=== PATIENT | female | born 1985 | race American Indian/Alaskan Native ===

== ENCOUNTER 2021-08-07 12:00 | Emergency (ER) | payer SELFPAY ==
[2021-08-07 12:08] VITALS: BP 133/75
--- NOTE | 2021-08-07 12:15 | Emergency Department Report ---
Abscess Boil HPI - HPI Chief Complaint: Extremity Injury, Lower Stated Complaint: LEFT BIG TOE Time Seen by Provider: 08/07/21 12:08 Duration: 2 Days Location: Lower Extremity Severity: Mild History: Yes Pain, No Fever, No Purulent Drainage, No Numbness, No Foreign Body, No Previous History, No Insect Bite HPI: 36 yo comes to ER p having her great toe ran over by a wheelchair while at work several days ago. She reporsts swelling and pain. no other injury. last tdap when she finished high school. Ambulatory to ER Allergies/Adverse Reactions: Allergies Allergy/AdvReac Type Severity Reaction Status Date / Time sulfamethoxazole AdvReac Hives Verified 08/07/21 12:09 [From Bactrim] trimethoprim [From Bactrim] AdvReac Hives Verified 08/07/21 12:09 ED Review of Systems ROS: Stated complaint: LEFT BIG TOE Other details as noted in HPI Comment: All other systems reviewed and negative ED Past Medical Hx - Past Medical History Previous Medical History?: No - Surgical History Past Surgical History?: No - Family History Family history: no significant - Social History Smoking Status: Never Smoker Substance Use Type: None ED Abscess Boil Physical Exam - Exam General: Vital signs noted. No distress. Alert and acting appropriately. Size: 2 cm Exam: Yes Tenderness, Yes Fluctuance, Yes Normal Neurologic Exam, Yes Normal Circulation, No Surrounding Cellulites/Erythema, No Lymphangitis, No Crepitation, No Heart Murmur Exam: l great toe with serous fluid filled blister. Full ROM. No nail bed involvement. Rapid cap refill. Foot and ankle WNL I & D Note - I & D Note I & D Note: blister opened with 18 g needle with immediate relief ofpain ED Course Vital Signs 08/07/21 12:05 Temperature 98.3 F Pulse Rate 84 Respiratory 16 Rate Blood Pressure 133/75 [Left] O2 Sat by Pulse 99 Oximetry Critical care attestation.: If time is entered above; I have spent that time in minutes in the direct care of this critically ill patient, excluding procedure time. ED Medical Decision Making - Medical Decision Making Vital Signs 08/07/21 08/07/21 12:05 12:31 Temperature 98.3 F Pulse Rate 84 Respiratory 16 18 Rate Blood Pressure 133/75 [Left] O2 Sat by Pulse 99 Oximetry tdap updated motrin for pain I/D completed wound care provided dressing applied ortho shoe for comfort Pt ambulatory on d/c exam. Pt dc home with dc plan of care including activity, wound care and follow up. She verbalizes understanding. - Differential Diagnosis blister/contusion ED Disposition Clinical Impression: Toe contusion, Blister Disposition: 01 HOME / SELF CARE / HOMELESS Is pt being admited?: No Does the pt Need Aspirin: No Condition: Stable Instructions: Contusion, [id number] Additional Instructions: keep wound clean and dry do not use vaseline on the wound motrin or tylenol for pain rest/ice/elevate follow up in 48 hours for recheck Referrals: FRANSISCO WEBER MD [Staff Physician] - 3-5 Days Forms: Work/School Release Form(ED) Time of Disposition: 12:18
[2021-08-07] MEDS ORDERED: TETANUS,DIPH,PERTUSS(ACELL) VACCINE 0.5 ML SYRINGE IM ONE (12:16)
[2021-08-07] MEDS ORDERED: IBUPROFEN 800 MG TAB PO ONE (12:18)
== END 2021-08-07 13:06 | disposition home or self-care (01) ==
LOC: ED 12:00
DX: S90.112A Contusion of left great toe without damage to nail, initial encounter (principal); S90.422A Blister (nonthermal), left great toe, initial encounter; Z88.2 Allergy status to sulfonamides; Z88.8 Allergy status to other drugs, medicaments and biological substances; Z79.899 Other long term (current) drug therapy; X58.XXXA Exposure to other specified factors, initial encounter; Y93.89 Activity, other specified; Y92.89 Other specified places as the place of occurrence of the external cause; Y99.8 Other external cause status
CPT/HCPCS: 90471; 90715; 99282